=== PATIENT | male | born 1970 | race Caucasian/White ===

== ENCOUNTER 2020-02-23 18:29 | Emergency (ER) | payer BC, SELFPAY ==
[2020-02-23] VITALS (13 sets, daily range): BP systolic 168; BP diastolic 108; PULSE 86–97; RESP 15–26; O2SAT 96–98; BMI 29.7
--- NOTE | 2020-02-23 18:38 | PC.NURSE ---
pt has no deficits besides facial numbness. this started 7 days ago putting him out of the window of treatment for an ischemic stroke. pt is stable
--- NOTE | 2020-02-23 20:21 | ED_ITS ---
Entered by Radha Centeno, acting as scribe for Marlene Ortega MD HPI - Neuro Symptoms/Deficit General: Chief Complaint: Neuro Symptoms/Deficit Stated Complaint: Stroke symptoms Time Seen by Provider: 02/23/20 20:19 Source: patient Mode of arrival: ambulatory Limitations: no limitations History of Present Illness: HPI Narrative: 49 yo m came to the er pov for stroke like symptoms. Onset was 1 week ago. Pt woke up about a week ago with his left eye and left arm numb. Pt said that he had a qud bypass 3 years ago. Pt said that the numbness is constant and has not gone away, but pt is able to walk. Pt is not having any weakness just numbness. Pt states that he has not had any change in vision at this time. Onset (ago): week(s) (1 week ago) Timing confirmed by: spouse Location: left face (numbness around the left eye) and left arm (numbness) Severity: mild Quality: numb Relieving factors: none Exacerbating factors: none Context: sudden onset Associated symptoms: Reports no associated symptoms; Deny chest pain, headache(s), nausea or vomiting Treatments Prior to Arrival: none Review of Systems General: Reports: other (negative unless marked) Const: Denies: fever, chills, body aches or change in appetite Eyes: Denies: change in vision ENMT: Denies: throat pain or dental pain Card: Denies: chest pain Resp: Denies: shortness of breath GI: Denies: abdominal pain, nausea, vomiting or diarrhea : Denies: painful urination Musc: Denies: neck pain or back pain Skin/Breast: Denies: rash Neuro: Reports: numbness in extremities; Denies: headache or difficulty walking Psych: Denies: depression Patrice/Lymph: Denies: easy bruising All/Imm: Denies: hives PFSH ED PFSH: Social History Smoking and tobacco status: current every day smoker NIH stroke score NIHSS: Level Of Consciousness - 1a: 0 Level Of Consciousness Questions - 1b: Both Correct Level Of Consciousness Commands - 1c: Both Correct Best Gaze - 2: Normal Visual Aviles - 3: No Visual Loss Facial Palsy - 4: Normal Motor Arm Right - 5: No Drift Motor Arm Left - 5: No Drift Motor Leg Right - 6: No Drift Motor Leg Left - 6: No Drift Limb Ataxia - 7: Absent Sensory - 8: Normal Best Language - 9: No Aphasia Dysarthia - 10: Normal Extinction And Inattention - 11: 0 Score: Total Score: 0 Physical Exam Const: COMMON NORMALS: no apparent distress, oriented x3 and healthy appearing HENMT: COMMON NORMALS: normocephalic and head/scalp atraumatic HEAD & SCALP: normocephalic and atraumatic Eye: COMMON NORMALS: PERRL and EOMs intact bilaterally PUPIL: Yes PERRL Neck/C-Spine: COMMON NORMALS: full ROM and supple Chest: COMMONS NORMALS: inspection of chest normal and palpation of chest normal Resp: COMMON NORMALS: normal respiratory effort, no retractions, no use of accessory muscles and clear to auscultation bilaterally AUSCULTATION: clear to auscultation bilaterally Cardio: COMMON NORMALS: regular rate, regular rhythm and no murmurs RATE: regular rate RHYTHM: regular rhythm GI: COMMON NORMALS: normal to inspection, nondistended, normoactive bowel sounds, soft to palpation, non-tender and no masses PALPATION: Yes soft Extremity: COMMON NORMALS: normal to inspection and full ROM Neuro: COMMON NORMALS: oriented x3, moves all extremities and no focal motor deficits Psych: COMMON NORMALS: mental status grossly normal, thought process normal and cooperative THOUGHT PROCESS: normal thought process Skin: COMMON NORMALS: no rashes or lesions noted and no wounds GENERAL SKIN EXAM: no rashes or lesions noted Course Vital Signs: Vital signs: Vital Signs Pulse Rate 87 02/23/20 21:50 Respiratory Rate 22 H 02/23/20 21:50 Blood Pressure 168/108 02/23/20 18:32 Pulse Oximetry 97 02/23/20 21:50 MDM - Neuro Symptoms/Deficit MDM Narrative: Medical decision making narrative: pt presents here with paresthesias. Pt has no decreased sensations. pt nih here is zero. his head ct is normal and has no signs of an acute stroke. pt is stable for discharge and is to follow up with pcp in 2-4 days and rturn if worsening. Lab Data: Labs: Lab Results 02/23/20 02/23/20 02/23/20 Range/Units 20:43 21:15 21:15 WBC 9.9 (4.0-10.0) 10^3/ uL RBC 5.57 H (4.1-5.3) 10^6/u L Hgb 16.5 (11.7-16.6) g/dL Hct 47.9 (42.0-52.0) % MCV 86.0 (80-94) fL MCH 29.6 (28.0-34.0) pg MCHC 34.4 (30.0-36.0) g/dL RDW 12.4 (12.1-15.1) % Plt Count 255 (130-400) 10^3/c mm MPV 8.7 (7.4-10.4) fL Neut % (Auto) 46.7 % Lymph % (Auto) 45.5 % [place] % (Auto) 5.5 % Eos % (Auto) 1.7 % Baso % (Auto) 0.4 % Neut # (Auto) 4.6 (1.8-7.7) 10^3/u L Lymph # (Auto) 4.5 (0.8-4.8) 10^3/u L [place] # (Auto) 0.5 (0.2-0.9) 10^3/u L Eos # (Auto) 0.2 (0.0-0.8) 10^3/u L Baso # (Auto) 0.0 (0.0-0.1) 10^3/u L Nucleated RBC % (a uto) 0 % Nucleated RBCs # 0.0 /100WBC PT 13.50 H (10.5-13.3) SECO NDS INR 1.03 (0.8-1.2) Sodium 136 (136-145) mmol/L Potassium 4.1 (3.5-5.1) mmol/L Chloride 99 (98-107) mmol/L Carbon Dioxide 25 (22-29) mmol/L Anion Gap 16.1 (5-19) BUN 12 (6-20) mg/dL Creatinine 0.8 (0.7-1.2) mg/dL GFR Calculation 101.9 (90-130) mL/min Glucose 145 H (65-115) mg/dL Calculated Osmolal ity 281 L (285-295) mOsm/k g Calcium 9.9 (8.5-10.5) mg/dL Total Bilirubin 0.4 (0.15-1.2) mg/dL AST 15 (0-40) U/L ALT 18 (0-41) U/L Alkaline Phosphata se 73 (40-130) IU/L Total Protein 7.6 (6.6-8.7) g/dL Albumin 4.1 (3.5-5.2) g/dL Globulin 3.5 (1.3-4.6) g/dL Imaging Data^: CT Head: Radiologist's impression: [address] [address] [address] Scan Report Signed Patient: Delores Taylor Unit #: [id number] : 1970 Age/Sex: 49 / M ADM Date: 02/23/20 Loc: ER Room/Bed: Attending Dr: Ordering Provider/Ordering MD: Marlene Ortega MD Date of Service: 02/23/20 Procedure(s): CT head wo con* [id number] Accession Number(s): [id number] Report Number: [id number] PROCEDURE INFORMATION: Exam: CT Head Without Contrast Exam date and time: 02/23/2020 8:39 PM Age: 49 years old Clinical indication: Weakness, extremity and weakness, facial; Left; Additional info: Paresthesia TECHNIQUE: Imaging protocol: Computed tomography of the head without contrast. Total DLP: 857.59 mGy-cm Radiation optimization: All CT scans at this facility use at least one of these dose optimization techniques: automated exposure control; mA and/or kV adjustment per patient size (includes targeted exams where dose is matched to clinical indication); or iterative reconstruction. COMPARISON: No relevant prior studies available. FINDINGS: Brain: Normal. No hemorrhage. Unremarkable white matter. No mass effect. Ventricles: Normal. No ventriculomegaly. Bones/joints: Unremarkable. No acute fracture. Sinuses: Visualized sinuses are unremarkable. No fluid levels. Mastoid air cells: Visualized mastoid air cells are well aerated. Soft tissues: Unremarkable. CT/CT head wo con* [id number] IMPRESSION: No acute intracranial abnormality. EKG Data^: EKG 1: Attestation: I personally reviewed and interpreted this EKG as follows: EKG interpretation date: 02/23/20 EKG interpretation time: 21:11 Interpretation: nsr hr [address] or t wave abnormalities qrs 97 qtc 383 Discharge Plan Discharge Patient Disposition: Home, Self-Care Clinical Impression: Paresthesia Condition: Stable Prescriptions: No Action glipizide 5 mg tablet extended release 24hr 5 mg PO DAILY RF: 0 metformin 500 mg tablet extended release 24 hr 500 mg PO DAILY RF: 0 Discharge Orders: Discharge Order (Routine); Ordered 02/23/20 Ordered By: Marlene Ortega Referrals: Francoise Ferraro DO [Family Provider] - 1-3 days Discharge Diet: Advance as tolerated Discharge Activity: Resume usual activity Patient Instructions: Paresthesia (ED) Coding Level of Care Code ED 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
--- NOTE | 2020-02-23 20:25 | CTR_ITS ---
PROCEDURE INFORMATION: Exam: CT Head Without Contrast Exam date and time: 02/23/2020 8:39 PM Age: 49 years old Clinical indication: Weakness, extremity and weakness, facial; Left; Additional info: Paresthesia TECHNIQUE: Imaging protocol: Computed tomography of the head without contrast. Total DLP: 857.59 mGy-cm Radiation optimization: All CT scans at this facility use at least one of these dose optimization techniques: automated exposure control; mA and/or kV adjustment per patient size (includes targeted exams where dose is matched to clinical indication); or iterative reconstruction. COMPARISON: No relevant prior studies available. FINDINGS: Brain: Normal. No hemorrhage. Unremarkable white matter. No mass effect. Ventricles: Normal. No ventriculomegaly. Bones/joints: Unremarkable. No acute fracture. Sinuses: Visualized sinuses are unremarkable. No fluid levels. Mastoid air cells: Visualized mastoid air cells are well aerated. Soft tissues: Unremarkable. CT/CT head wo con* [id number] IMPRESSION: No acute intracranial abnormality. Radiation Dose CTDIVOL = (mGy): DLP = 857.59 (mGy-cm)
--- NOTE | 2020-02-23 20:25 | XR_ITS ---
WS: [id number] Portable AP upright chest, 02/23/2020 Clinical Data: cp Comparison: PA and lateral chest, 04/29/2016. Findings: No nodules, masses or effusions are seen. Basilar atelectatic changes remain the same. The heart is normal. The pulmonary vascularity is not increased. No pneumonia or pneumothorax is seen. Th e aortic arch and descending aorta are minimally tortuous. Midline sternotomy sutures are present. XR/XR chest 1V portable [id number] Impression: 1 atherosclerosis. 2. No change in basilar atelectasis.
--- NOTE | 2020-02-23 20:26 | ECG_ITS ---
Measurements Intervals [place] Rate: 85 P: 50 KS: 163 QRS: 80 QRSD: 97 T: 73 QT: 340 QTc: 406 SINUS RHYTHM WITH OCCASIONAL VENTRICULAR PREMATURE COMPLEXES Compared to ECG 04/25/2016 04:09:31 Ventricular premature complex(es) now present ST (T wave) deviation no longer present Early repolarization no longer present Electronically Signed On 02-24-2020 18:20:37 CDT by Tommy Null M.D. [id number]
--- NOTE | 2020-02-23 20:44 | PC.NURSE ---
Introduced self to patient and initiated vital signs. Patient presents A&O x 4. NAD, ABCs intact, MAEW and agreeable to treatment. Respirations are even and unlabored. Pt states that the chief complaint for the ER visit today is due to left arm and eye socket numbness for about 1 week. Pt denies any vision disturbances or lightheadedness. Bed left in lowest position in semi-fowlers with side rails up.Reassured patient of needs and will continue to monitor.
[2020-02-23 20:58] LABS: Basophils % 0.4 %; Eosinophils # 0.2 10^3/uL (0.0-0.8); Eosinophils % 1.7 %; Hematocrit 47.9 % (42.0-52.0); Hemoglobin 16.5 g/dL (11.7-16.6); Lymphocytes # 4.5 10^3/uL (0.8-4.8); Lymphocytes % 45.5 %; Mean Corpuscular HGB Conc 34.4 g/dL (30.0-36.0); Mean Corpuscular Hemoglobin 29.6 pg (28.0-34.0); Mean Platelet Volume 8.7 fL (7.4-10.4); Monocytes # 0.5 10^3/uL (0.2-0.9); Monocytes % 5.5 %; Neutrophils # 4.6 10^3/uL (1.8-7.7); Neutrophils % 46.7 %; Nucleated Red Blood Cells % 0 %; Platelet Count 255 10^3/cmm (130-400); Red Blood Count 5.57 10^6/uL (4.1-5.3); Red Cell Distribution Width 12.4 % (12.1-15.1); White Blood Count 9.9 10^3/uL (4.0-10.0)
[2020-02-23 21:41] LABS: Alanine Aminotransferase 18 U/L (0-41); Albumin Level 4.1 g/dL (3.5-5.2); Alkaline Phosphatase 73 IU/L (40-130); Anion Gap 16.1 (5-19); Aspartate Amino Transferase 15 U/L (0-40); Blood Urea Nitrogen 12 mg/dL (6-20); Calcium 9.9 mg/dL (8.5-10.5); Carbon Dioxide 25 mmol/L (22-29); Chloride 99 mmol/L (98-107); Globulin 3.5 g/dL (1.3-4.6); Glomerular Filtration Rate 101.9 mL/min (90-130); Glucose 145 mg/dL (65-115); Osmolality Calculated 281 mOsm/kg (285-295); Potassium 4.1 mmol/L (3.5-5.1); Sodium 136 mmol/L (136-145); Total Bilirubin 0.4 mg/dL (0.15-1.2); Total Protein 7.6 g/dL (6.6-8.7)
[2020-02-23 21:55] LABS: INR 1.03 (0.8-1.2)
== END 2020-02-23 22:17 | disposition home or self-care (01) ==
PROVIDERS: Emergency Provider Emergency Medicine; Family Provider Family Medicine
DX: R20.0 Anesthesia of skin (principal); F17.200 Nicotine dependence, unspecified, uncomplicated; Z95.1 Presence of aortocoronary bypass graft
CPT/HCPCS: 12345; 36415; 70450; 71045; 80053; 85025; 85610; 93005; 99282; 99283

== ENCOUNTER 2024-05-04 17:41 | Observation (INO) | payer BC, SELFPAY ==
--- NOTE | 2024-05-04 17:44 | XRR_ITS ---
PROCEDURE INFORMATION: Exam: XR Chest Exam date and time: 05/04/2024 6:15 PM Age: 53 years old Clinical indication: Pain; Chest pressure; Prior surgery; Surgery date: 6+ months; Surgery type: Open heart; Additional info: Cp TECHNIQUE: Imaging protocol: Radiologic exam of the chest. Views: 1 view. COMPARISON: CR XR chest 1V portable [id number] 02/23/2020 8:30 PM FINDINGS: Lungs: Bibasilar curvilinear scarring. No consolidation. Pleural spaces: Unremarkable. No pleural effusion. No pneumothorax. Heart/Mediastinum: Sequela of prior CABG. No cardiomegaly. Bones/joints: Sternotomy wires noted. Visualized osseous structures are intact. XR/XR chest 1V portable [id number] IMPRESSION: No acute findings.
--- NOTE | 2024-05-04 17:44 | ECG_ITS ---
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 Measurements Intervals [place] Rate: 70 P: -74 ID: 150 QRS: 97 QRSD: 98 T: 123 QT: 423 QTc: 457 Interpretive Statements ECTOPIC ATRIAL RHYTHM BORDERLINE RIGHT AXIS DEVIATION [QRS AXIS > 90] MODERATE T-WAVE ABNORMALITY, CONSIDER LATERAL ISCHEMIA [-0.1+ mV T-WAVE IN I/aVL/V5/V6] Compared to ECG 02/23/2020 21:11:55 Ectopic atrial rhythm now present T-wave abnormality now present Possible ischemia now present Sinus rhythm no longer present Ventricular premature complex(es) no longer present Electronically Signed On 05-05-2024 7:26:13 CDT by Carlos Amos M.D. [id number]
[2024-05-04 17:50] VITALS: BP 149/82; PULSE 70; RESP 16; TEMP 36.7; O2SAT 95
--- NOTE | 2024-05-04 18:54 | ED_ITS ---
HPI - Chest Pain 2 General: Chief Complaint: Chest Pain Stated Complaint: dizzy, chest tightness Time Seen by Provider: 05/04/24 18:46 Source: patient Mode of arrival: ambulatory Limitations: no limitations History of Present Illness: 53-year-old male states has been having intermittent chest pain since Saturday. He states been a sharp pain in the left side also some pain in his back states he had a massage yesterday and it did help his pain to be had some more pain today and had a near syncopal event has felt lightheaded. He denies any pain currently he denies any cough or fever or shortness of breath Associated symptoms: Reports syncope; Deny abdominal pain, dyspnea, fever(s), nausea or vomiting Review of Systems 2 Const: Denies: fever(s), chills, body aches or change in appetite ENMT: Denies: throat pain or dental pain Card: Reports: chest pain and syncope Resp: Denies: dyspnea GI: Denies: abdominal pain, nausea, vomiting or diarrhea Musc: Denies: neck pain or back pain Skin/Breast: Denies: rash Neuro: Denies: headache(s) PFSH ED 2 PFSH: Social History Smoking and tobacco/nicotine status: current every day tobacco/nicotine user Physical Exam 2 Const: COMMON NORMALS: patient oriented x3 HENMT: COMMON NORMALS: normocephalic and atraumatic HEAD & SCALP: n ormocephalic and atraumatic Eye: COMMON NORMALS: Equal, round and reactive pupils present and EOMs intact bilaterally PUPIL: Yes Equal, round and reactive pupils present Neck/C-Spine: COMMON NORMALS: full ROM and supple Chest: COMMONS NORMALS: normal inspection of the chest and normal palpation of entire chest wall Resp: COMMON NORMALS: normal respiratory effort, No retractions, No use of accessory muscles and clear to auscultation bilaterally AUSCULTATION: clear to auscultation bilaterally Cardio: COMMON NORMALS: regular rate, regular rhythm and No murmurs present (Cardio) RATE: regular rate RHYTHM: regular rhythm Extremity: COMMON NORMALS: normal to inspection and full ROM Neuro: COMMON NORMALS: patient oriented x3, moves all extremities and no focal motor deficits Psych: COMMON NORMALS: mental status grossly normal, Normal thought process present and cooperative THOUGHT PROCESS: Normal thought process present Skin: COMMON NORMALS: no rashes or lesions noted and no wounds GENERAL SKIN EXAM: no rashes or lesions noted Course 2 Vital Signs: Vital signs: Vital Signs Temperature 98.0 F 05/04/24 17:50 Pulse Rate 69 05/04/24 19:26 Respiratory Rate 25 H 05/04/24 19:26 Blood Pressure 136/80 05/04/24 19:26 Pulse Oximetry 97 05/04/24 19:26 Oxygen Delivery Me thod Room Air 05/04/24 19:26 MDM - Chest Pain Medical Decision Making Patient presents for chest pains been ongoing since Saturday has been pain-free here EKG shows T wave inversions in the lateral leads he also has an elevated troponin here likely has an NSTEMI. 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 Lab Data I reviewed the patient's lab results. 05/04/24 18:50 05/04/24 18:50 Radiology Impressions Chest X-Ray 05/04/24 17:44 IMPRESSION: No acute findings. Laboratory Results WBC 8.11 10^3/uL (3.29-11.43) 05/04/24 18:50 RBC 4.96 10^6/uL (3.85-5.65) 05/04/24 18:50 Hgb 14.40 g/dL (11.27-16.99) 05/04/24 18:50 Hct 43.2 % (37-53) 05/04/24 18:50 MCV 87.1 fl (82-101) 05/04/24 18:50 MCH 29.0 pg (27-33) 05/04/24 18:50 MCHC 33.3 g/dL (30-55) 05/04/24 18:50 RDW 13.0 % (12.1-15.1) 05/04/24 18:50 Plt Count 309 10^3/cmm (157-399) 05/04/24 18:50 MPV 9.4 fL (7.4-10.4) 05/04/24 18:50 Neut % (Auto) 58.7 % 05/04/24 18:50 Lymph % (Auto) 34.2 % 05/04/24 18:50 [place] % (Auto) 6.0 % 05/04/24 18:50 Eos % (Auto) 0.7 % 05/04/24 18:50 Baso % (Auto) 0.2 % 05/04/24 18:50 Neut # (Auto) 4.75 10^3/uL (1.8-7.7) 05/04/24 18:50 Lymph # (Auto) 2.8 10^3/uL (0.8-4.8) 05/04/24 18:50 [place] # (Auto) 0.5 10^3/uL (0.2-0.9) 05/04/24 18:50 Eos # (Auto) 0.1 10^3/uL (0.0-0.8) 05/04/24 18:50 Baso # (Auto) 0.0 10^3/uL (0.0-0.1) 05/04/24 18:50 Nucleated RBC % (auto) 0 % 05/04/24 18:50 Nucleated RBCs # 0.0 /100WBC 05/04/24 18:50 PT 15.10 SECONDS (12.1-14.9) H 05/04/24 18:50 INR 1.15 (0.8-1.2) 05/04/24 18:50 Sodium 138 mmol/L (136-145) 05/04/24 18:50 Potassium 3.8 mmol/L (3.5-5.1) 05/04/24 18:50 Chloride 102 mmol/L (98-107) 05/04/24 18:50 Carbon Dioxide 25 mmol/L (22-29) 05/04/24 18:50 Anion Gap 14.8 (5-19) 05/04/24 18:50 BUN 15 mg/dL (6-20) 05/04/24 18:50 Creatinine 0.9 mg/dL (0.7-1.2) 05/04/24 18:50 GFR Calculation 87.6 mL/min (90-130) L 05/04/24 18:50 Glucose 153 mg/dL (65-115) H 05/04/24 18:50 Calculated Osmolality 290 mOsm/kg (285-295) 05/04/24 18:50 Calcium 8.7 mg/dL (8.5-10.5) 05/04/24 18:50 Total Bilirubin 0.7 mg/dL (0.15-1.2) 05/04/24 18:50 AST 23 U/L (0-40) 05/04/24 18:50 ALT 24 U/L (0-41) 05/04/24 18:50 Alkaline Phosphatase 101 U/L (40-130) 05/04/24 18:50 Troponin T Baseline 437 ng/L (0-15) H* 05/04/24 18:50 Total Protein 7.6 g/dL (6.6-8.7) 05/04/24 18:50 Albumin 4.3 g/dL (3.5-5.2) 05/04/24 18:50 Globulin 3.3 g/dL (1.3-4.6) 05/04/24 18:50 Lipase 19 U/L (13-60) 05/04/24 18:50 All radiology interpretation(s) finalized by discharge EKG Data EKG 1: I personally reviewed and interpreted this EKG as follows: EKG interpretation date: 05/04/24 EKG interpretation time: 17:50 Interpretation: nsr hr [address] elevation t wave inversions in lateral leads qrs 98 qtc 443 EKG 2: I personally reviewed and interpreted this EKG as follows: EKG interpretation date: 05/04/24 EKG interpretation time: 19:43 Interpretation: nsr hr 68 no stemi qrs 98 qtc 447 Discharge Plan Discharge Patient Disposition: Admitted As Inpatient Clinical Impression: Non-ST elevation HI (NSTEMI) Condition: Stable Coding Level of Care Code ED Count Room Clerk for Shayy Almanzar
[2024-05-04 19:01] LABS: Basophils % 0.2 %; Eosinophils # 0.1 10^3/uL (0.0-0.8); Eosinophils % 0.7 %; Hematocrit 43.2 % (37-53); Lymphocytes # 2.8 10^3/uL (0.8-4.8); Lymphocytes % 34.2 %; Mean Corpuscular HGB Conc 33.3 g/dL (30-55); Mean Corpuscular Volume 87.1 fl (82-101); Mean Platelet Volume 9.4 fL (7.4-10.4); Monocytes # 0.5 10^3/uL (0.2-0.9); Neutrophils # 4.75 10^3/uL (1.8-7.7); Neutrophils % 58.7 %; Nucleated Red Blood Cells % 0 %; Platelet Count 309 10^3/cmm (157-399); Red Blood Count 4.96 10^6/uL (3.85-5.65); White Blood Count 8.11 10^3/uL (3.29-11.43)
[2024-05-04] MEDS: aspirin 81 mg Chew Tablet 324 MG PO (19:12)
[2024-05-04 19:14] LABS: INR 1.15 (0.8-1.2)
[2024-05-04 19:22] LABS: Alanine Aminotransferase 24 U/L (0-41); Albumin Level 4.3 g/dL (3.5-5.2); Alkaline Phosphatase 101 U/L (40-130); Anion Gap 14.8 (5-19); Aspartate Amino Transferase 23 U/L (0-40); Blood Urea Nitrogen 15 mg/dL (6-20); Calcium 8.7 mg/dL (8.5-10.5); Carbon Dioxide 25 mmol/L (22-29); Chloride 102 mmol/L (98-107); Creatinine Clr Calc Pharmacy 88.0542; Globulin 3.3 g/dL (1.3-4.6); Glomerular Filtration Rate 87.6 mL/min (90-130); Glucose 153 mg/dL (65-115); Lipase 19 U/L (13-60); Osmolality Calculated 290 mOsm/kg (285-295); Potassium 3.8 mmol/L (3.5-5.1); Sodium 138 mmol/L (136-145); Total Bilirubin 0.7 mg/dL (0.15-1.2); Total Protein 7.6 g/dL (6.6-8.7)
[2024-05-04 19:26] VITALS: BP 136/80; PULSE 69; RESP 25; O2SAT 97
[2024-05-04 19:32] LABS: Troponin(5th) Baseline 437 ng/L (0-15)
--- NOTE | 2024-05-04 19:43 | ECG_ITS ---
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 Measurements Intervals [place] Rate: 68 P: 139 [place]: 151 QRS: -42 QRSD: 98 T: -75 QT: 429 QTc: 459 Interpretive Statements ECTOPIC ATRIAL RHYTHM LEFT AXIS DEVIATION [QRS AXIS < -30] ST DEVIATION AND MODERATE T-WAVE ABNORMALITY, CONSIDER LATERAL ISCHEMIA [-0.1+ mV T-WAVE IN I/aVL/V5/V6] ST DEVIATION AND MODERATE T-WAVE ABNORMALITY, CONSIDER INFERIOR ISCHEMIA [-0.1+ mV T-WAVE IN II/aVF] Compared to ECG 05/04/2024 17:50:36 Left-axis deviation now present T-wave abnormality still present Possible ischemia still present Electronically Signed On 05-05-2024 7:30:24 CDT by Carlos Amos M.D. [id number]
[2024-05-04 20:00] VITALS: PULSE 67; RESP 26; O2SAT 96
[2024-05-04] MEDS: enoxaparin 80 mg/0.8 mL Syringe 70 MG SUBCUT (20:21)
--- NOTE | 2024-05-04 20:25 | PM.HP ---
Providers/Chief Complaint Admitting Physician: Phoenix Rosen MD Chief Complaint: dizzy, chest tightness History of Present Illness Delores Taylor is a 53 year old male with a past medical history significant for coronary artery disease with history of four-vessel CABG and tobacco use disorder who presents to the emergency department chest pressure. Patient states he was in his usual state of health until Saturday when he developed chest pains which he describes as a substernal chest pressure. He reports the nature of the pain feels sharp with some radiation towards his back. He describes the pain as intermittent but worsening over the past few days. He is unsure if exertion or rest affected the pain much. He notes that he did have a massage yesterday which did seem to initially help the pain some. States this morning when he was driving to work he briefly passed out and landed the grass. States he had another brief syncopal episode while sitting on the bleachers today and then another 1 later while outside. He denies any head trauma or pain from the syncope. He reports associated nausea today. Denies other associated symptoms. Denies other alleviating or aggravating factors. Patient reports a history of a four-vessel CABG performed at [facility] about 7 years ago. He reports prior to his bypass, he was having chest pressure and nausea. He states the symptoms over the past few days only somewhat similar to his prior symptoms. He no longer follows with cardiology. He states he currently takes no medications. He reports he does continue to smoke tobacco. He smokes about 1 pack/day. In the emergency department, he was found to have elevated troponin and EKG concerning for inferolateral ischemia. Patient treated with Lovenox. Cardiology consulted. Review of Systems Narrative: A complete review of systems was obtained and is negative except as stated in HPI. Medications/Allergies Allergies Allergy/AdvReac Type Severity Reaction Status Date / Time No Known Allergies Allergy Verified 05/04/24 17:59 PFSH Acute PFSH: Medical History Tobacco use disorder Coronary artery disease Surgical History S/P CABG x 4 Family History Mother Cancer Social History Smoking and tobacco/nicotine status: current every day tobacco/nicotine user Vitals/I&O/Wt Last Vital Signs Temp 98.0 F 05/04/24 17:50 Pulse 67 05/04/24 20:00 Resp 96 H 05/04/24 20:00 BP 136/80 05/04/24 19:26 Pulse Ox 96 05/04/24 20:00 O2 Del Method Room Air 05/04/24 20:00 Weight last 48 hrs Weight 72.121 kg Physical Exam Narrative: General: Patient is awake and alert. Head: Normocephalic. Atraumatic. EOM intact. Neck: No JVD. Cardiovascular: RRR. No gallops. No murmurs. No peripheral edema. Lungs: Slight cough, no use of accessory muscles, no crackles or wheezes. Skin: No jaundice. No rashes. Abdomen: Normal bowel sounds, abdomen soft and nontender. Genito Urinary: Genital exam not performed since complaints not related. Rectal: Rectal exam not performed since no symptoms indicated blood loss. Extremities: No cyanosis or clubbing. Musculoskeletal: 5/5 strength, normal range of motion, no swollen or erythematous joints. Neurological: Moves all 4 extremities. No myoclonus. Data 05/04/24 18:50 05/04/24 18:50 A&P Assessment and plan (1) Non-ST elevation [place] (NSTEMI): Presentation consistent with NSTEMI; known history of CAD with history of 4v CABG Loaded with aspirin in ER, continue 81 mg daily Load with Plavix followed by 75 mg daily Start high intensity statin Start beta-aawis with metoprolol Check lipids and A1c Continuous telemetry monitoring Given dose Lovenox in ED, start heparin drip protocol 12 hours Nitroglycerin sublingual up to 3 doses Morphine for refractory pain N.p.o. at midnight Cardiology consulted for recommendations regarding ischemic workup (2) Syncope: Near syncope/syncope x 3 episodes today Concerning for possible ventricular arrhythmia Continuous telemetry monitoring Fall precautions Neurochecks Monitor electrolytes Echocardiogram (3) Coronary artery disease: History of four-vessel CABG performed at [facility] about 7 years ago Management of coronary disease as noted above (4) Hyperglycemia: Check A1c (5) Tobacco use disorder: Patient would benefit from smoking cessation Plan DVT prophylaxis: Lovenox/heparin drip CODE STATUS: Full code Attestations Medical Necessity Statement*: Patient presents with chest pressure and recurrent syncope, found to have NSTEMI suspect hospitalization not to cross 2 midnights for ACS protocol and ischemic evaluation. Coding Level of Care Code Acute Code for Chg Fwd Diagnoses Non-ST elevation [place] (NSTEMI) I21.4 Syncope R55 Coronary artery disease I25.10 Hyperglycemia R73.9 Tobacco use disorder F17.200
[2024-05-04 20:54] VITALS: PULSE 87; RESP 25; O2SAT 96
[2024-05-04 21:02] VITALS: BMI 25.7
[2024-05-04 21:26] LABS: Troponin 5 2HR Delta -19.9 ABS# (0-10)
[2024-05-04 21:28] VITALS: BP 136/81; PULSE 69; RESP 27; TEMP 36.7; O2SAT 95
[2024-05-04 21:28] LABS: Troponin 5 2HR 417.1 ng/L (0-15)
--- NOTE | 2024-05-04 21:30 | USCV_ITS ---
Delores Taylor Age: 53 Gender: M : 1970 Exam Date: 05/04/2024 22:23 Ordering Phys: Phoenix Rosen MD Technologist: DAWOOD Exam Location: [place] Indication: NSTEMI. s/p CABG 2016 BP: 136 / 81 HR: 67 Rhythm: Atrial Fibrillation Technical Quality: Adequate MEASUREMENTS (Male / Female) Normal Values 2D ECHO LV Diastolic Diameter PLAX 4.8 cm 4.2 - 5.9 / 3.9 - 5.3 cm IVS Diastolic Thickness 0.9 cm 0.6 - 1.0 / 0.6 - 0.9 cm IVS Systolic Thickness 1.2 cm LVPW Diastolic Thickness 0.9 cm 0.6 - 1.0 / 0.6 - 0.9 cm LVPW Systolic Thickness 1.4 cm LVOT Diameter 2.2 cm LV Ejection Fraction 2D Teich 38.3 % LV Ejection Fraction MOD 2C 38.9 % LV Ejection Fraction 2C AL 44.8 % LA Diameter 5.3 cm Aorta at Sinotubular Diameter 2.9 cm IVC Diameter 2.3 cm M-MODE LA Ao Ratio MM 1.3 AV Cusp Separation MM 1.7 cm DOPPLER AV Peak Velocity 138.0 cm/s LVOT Peak Velocity 68.0 cm/s AV Area Cont Eq vti 2.1 cm squared AV Area Cont Eq pk 1.8 cm squared MV Area PHT 4.9 cm squared Mitral E to A Ratio 311.0 TV Peak Velocity 259.7 cm/s TR Peak Velocity 278.0 cm/s TR Peak Gradient 30.9 mmHg TV Peak E Velocity 51.0 cm/s Right Atrial Pressure 10.0 mmHg Pulmonary Artery Systolic Pressu 40.9 mmHg PV Peak Velocity 73.0 cm/s FINDINGS Left Ventricle Left ventricle normal size. LV systolic function is moderately reduced with EF of 35 to 40%. Moderate global hypokinesis. Right Ventricle RV is moderately hypokinetic. Right Atrium Normal in size Left Atrium Normal in size Mitral Valve Structurally normal mitral valve. Mild mitral regurgitation. Aortic Valve Aortic valve is thickened. No significant stenosis or regurgitation. Tricuspid Valve Mild tricuspid regurgitation. RVSP is 35 to 40 mmHg. This is consistent with mild pulmonary hypertension. Pulmonic Valve Not well visualized Pericardium Normal Aorta Normal in size IVC Appears to be dilated CONCLUSIONS LV systolic function is moderately reduced with EF of 35 to 40%. RV is moderately hypokinetic. Mild mitral regurgitation Mild tricuspid regurgitation. Mild pulmonary hypertension IVC appears to be dilated. No comparison studies are available. Carlos Amos MD (Electronically Signed) Final Date: 05 May 2024 07:49 S
[2024-05-04 21:56] LABS: Chol HDL Ratio 6.64 mg/dL (1.0-5.00); Cholesterol 166 mg/dL (0-200); HDL Cholesterol 25 mg/dL (60-100); LDL Cholesterol Calculated 116 mg/dL (50-129); LDL HDL Ratio 4.64 RATIO (0.00-3.22); Triglycerides 126 mg/dL (0-150)
[2024-05-04 22:00] VITALS: PULSE 69
[2024-05-04] MEDS: atorvastatin 40 mg Tablet 80 MG PO (22:21)
[2024-05-04] MEDS: metoprolol tartrate 25 mg Tablet PO (22:21)
[2024-05-04] MEDS: clopidogrel 300 mg Tablet 600 MG PO (22:21)
[2024-05-04 22:45] LABS: Estmated Average Glucose 200; Hemoglobin A1C 8.6 % (4.0-6.0)
--- NOTE | 2024-05-04 23:37 | ECG_ITS ---
[facility] Test Date: 2024-05-04 Pat Name: Delores Taylor Department: Room: 102 Gender: Male [id number] Architect: : 1970 Requested By: Marlene Ortega Order Number: [id number] [place] MD: Carlos Amos M.D. Measurements Intervals [place] Rate: 69 P: -71 [place]: 133 QRS: 108 QRSD: 96 T: 117 QT: 409 QTc: 439 Interpretive Statements ECTOPIC ATRIAL RHYTHM RIGHT AXIS DEVIATION [QRS AXIS > 100] ST DEVIATION AND MODERATE T-WAVE ABNORMALITY, CONSIDER LATERAL ISCHEMIA [-0.1+ mV T-WAVE IN I/aVL/V5/V6] Compared to ECG 05/04/2024 19:43:14 Right-axis deviation now present Ectopic atrial rhythm no longer present Left-axis deviation no longer present T-wave abnormality still present Possible ischemia still present Electronically Signed On 05-05-2024 7:28:30 CDT by Carlos Amos M.D. [id number]
[2024-05-05] VITALS (14 sets, daily range): BP systolic 92–132; BP diastolic 52–80; PULSE 57–75; RESP 15–74; TEMP 36.3–36.8; O2SAT 90–94
[2024-05-05 01:35] LABS: Troponin 5 6HR Delta -25.6 ng/L (0-12)
[2024-05-05 01:36] LABS: Troponin 5 6HR 411.4 ng/L (0-15)
[2024-05-05 04:13] LABS: Basophils % 0.4 %; Eosinophils # 0.1 10^3/uL (0.0-0.8); Eosinophils % 1.2 %; Hematocrit 41.5 % (37-53); Lymphocytes # 2.8 10^3/uL (0.8-4.8); Lymphocytes % 36.2 %; Mean Corpuscular HGB Conc 32.5 g/dL (30-55); Mean Corpuscular Hemoglobin 28.8 pg (27-33); Mean Corpuscular Volume 88.7 fl (82-101); Mean Platelet Volume 9.6 fL (7.4-10.4); Monocytes # 0.5 10^3/uL (0.2-0.9); Monocytes % 5.8 %; Neutrophils # 4.37 10^3/uL (1.8-7.7); Neutrophils % 55.8 %; Nucleated Red Blood Cells % 0 %; Platelet Count 274 10^3/cmm (157-399); Red Blood Count 4.68 10^6/uL (3.85-5.65); Red Cell Distribution Width 13.1 % (12.1-15.1); White Blood Count 7.82 10^3/uL (3.29-11.43)
[2024-05-05 04:38] LABS: Anion Gap 14.2 (5-19); Blood Urea Nitrogen 15 mg/dL (6-20); Calcium 8.7 mg/dL (8.5-10.5); Carbon Dioxide 24 mmol/L (22-29); Chloride 106 mmol/L (98-107); Creatinine Clr Calc Pharmacy 79.2488; Glomerular Filtration Rate 77.6 mL/min (90-130); Glucose 145 mg/dL (65-115); Osmolality Calculated 293 mOsm/kg (285-295); Phosphorus 3.4 mg/dL (2.5-4.5); Potassium 4.2 mmol/L (3.5-5.1); Sodium 140 mmol/L (136-145)
--- NOTE | 2024-05-05 06:55 | P.CONIM_ITS ---
Providers/Reason For Consult 2 Consulting Physician/Specialty*: Carlos Amos MD/ Cardiology Reason for Consult*: NSTEMI Requesting Physician: Dr Ortega Attending Physician: Phoenix Rosen MD History of Present Illness History of Present Illness Delores Taylor is a 53 year old male with past medical history of smoking, CAD with four-vessel CABG in 2016 has presented with on and off chest pain since Saturday. Left sided pain with radiation to back. Over time it has gotten worse. [place] very lightheaded and almost passed out yesterday. Echo performed last night shows moderately reduced LV and RV function. Initial troponin was 437 and has trended down since. Still having on and off pain. Has some shortness of breath and cough since last night. EKG shows T wave inversions in lateral leads. Review of Systems 2 Const: Denies: fever(s), chills, body aches or change in appetite ENMT: Denies: throat pain or dental pain Card: Reports: chest pain and syncope Resp: Denies: dyspnea GI: Denies: abdominal pain, nausea, vomiting or diarrhea Musc: Denies: neck pain or back pain Skin/Breast: Denies: rash Neuro: Denies: headache(s) Medications/Allergies Home Medications Medication Instructions Recorded Confirmed Last Taken Type No Known Home Medications 05/05/24 05/05/24 Unknown History Allergies Allergy/AdvReac Type Severity Reaction Status Date / Time No Known Allergies Allergy Verified 05/04/24 17:59 Current Medications Generic Name Dose Route Start Last Admin Trade Name Freq PRN Reason Stop Dose Admin Atorvastatin Calcium 80 mg 05/04/24 21:35 05/04/24 22:21 Atorvastatin 40 Mg Tablet PO 80 mg BEDTIME ILEANA Administration Metoprolol Tartrate 25 mg 05/04/24 21:35 05/04/24 22:21 Metoprolol Tartrate 25 Mg Tablet PO 25 mg BID@0900,2100 ILEANA Administration PFSH Acute 2 PFSH: Medical History Tobacco use disorder Coronary artery disease Surgical History S/P CABG x 4 Family History Mother Cancer Social History Smoking and tobacco/nicotine status: current every day tobacco/nicotine user Vitals/I&O/Wt Last Vital Signs Temp 97.5 F L 05/05/24 04:00 Pulse 64 05/05/24 06:00 Resp 74 H 05/05/24 04:00 BP 105/67 05/05/24 04:00 Pulse Ox 92 05/05/24 04:00 O2 Del Method Room Air 05/05/24 04:00 05/04/24 05/04/24 05/05/24 14:59 22:59 06:59 Intake Total 240 / 240 500 / 740 Balance 240 / 240 500 / 740 Weight last 48 hrs Weight 160 lb Weight 160 lb Weight 159 lb Weight 159 lb Weight 159 lb Physical Exam 2 Narrative: GENERAL: Patient is alert, awake and oriented x3. [] NECK: No jugular vein distension. [] HEENT: No cyanosis. No icterus. No pallor. [] HEART: Regular S1 and S2. No murmur, rub or gallop. [] LUNGS: Clear to auscultate bilaterally. [] CENTRAL NERVOUS SYSTEM: Grossly nonfocal. [] EXTREMITIES: Lower extremities with no edema bilaterally. Data 05/05/24 03:13 05/05/24 03:13 A&P Assessment and plan (1) Non-ST elevation [place] (NSTEMI): (2) Coronary artery disease: (3) Tobacco use disorder: Plan Patient has presented with typical chest pain and symptoms with significantly elevated troponins. EKG showing the lateral wall T wave inversions. Findings consistent with non-ST elevation KS. Also had 2 syncopal/presyncopal episode yesterday. We will proceed with coronary angiogram with possible PCI. Risks and benefits of the procedure have been discussed. He understands these and wants to proceed. Continue aspirin and Plavix. Continue anticoagulation. N.p.o. Thank you for involving us with care of this patient. We will continue to follow. Please call with questions. Consult Attestations 2 Medical Necessity Statement: Care expected to cross 2 midnights. Coding Level of Care Code Acute Code for [facility] Fwd Diagnoses Non-ST elevation [place] (NSTEMI) I21.4 Coronary artery disease I25.10 Tobacco use disorder F17.200
--- NOTE | 2024-05-05 07:32 | PC.NURSE ---
Called Dr. Amos to see if he wanted me to start the heparin drip at this time as it was scheduled to start at 0700. Dr. Amos said to hold off on starting as he is planning to take the pt to [facility] this morning around 0830.
--- NOTE | 2024-05-05 07:43 | XACV_ITS ---
Exam Room: [facility] Ht: 168 cm Wt: 73 kg BSA: 1.85 m2 Gender: Male : 1970 Any Known Allergies: No known allergies Exam Priority: Routine Procedure(s): Procedure Description: Diagnostic procedure Procedure Description: PCI procedure Procedure Description: Venous Graft Catheterization Procedure Description: FAIR[place]KS Graft Catheterization Procedure Description: Drug Eluting Coronary Stent Procedure Description: Miscellaneous Procedure Description: ACT Procedure Description: Coronary Angiography Diagnostic Cath Status: Urgent Diagnostic Findings * Circumflex diffusely diseased, small sized vessel. * Left Main: severe 90% stenosis, COLIN: 2 flow. * Proximal Left Anterior Descending: chronic total occlusion, COLIN: 0 flow. * Bypass grafts: [place] to LAD is patent. SVG to RCA is patent. SVG to Diagonal artery is patent. SVG to OM at touchdown has critical 95% stenosis. * Proximal Right Coronary Artery: subtotal occlusion, COLIN: 2 flow. * First Obtuse Marginal Branch Segment: subtotal occlusion, COLIN: 1 flow. * Coronary angiography shows right dominance. PCI Status: Urgent PCI Indication: NSTE - ACS Interventional Findings * Procedure details: We engaged the SVG to OM vessel with JR4 guide catheter. IV heparin was administered to maintain anticoagulation. 0.014 run-through guidewire was used to cross the stenosis. We placed 2.25 x 15 mm resolute Christopher drug-eluting stent. At this time final angiogram was performed that showed excellent stent expansion. Guidewire and guide catheter were removed. Patient left the Vibration Engineer in a stable condition.. Conclusions 1. Critical stenosis of SVG to OM 2. at touchdown. 3. S/p successful revascularization with 1 stent.. 4. Patient has prior CABG. Recommendations * Dual antiplatelet therapy with aspirin and plavix. * High intensity statin therapy. * Outpatient cardiology follow up in 2 weeks. Interventional RX Recommendation: PCI w/o planned CABG Diagnostic RX Recommendation: PCI w/o planned CABG Anticoagulation: Heparin Pressures Phase:Rest AO : 96 / 71 ( 84 ) @ 9:51:00 AM 108 / 70 ( 86 ) @ 9:58:00 AM Clinical Evaluation EBL: 5mL-10mL Procedural Details Pre-Procedure Time Out. Identified patient by full name and date of as verbalized by the patient/guarantor. Does the consent match the physician's order: Yes. Accurate & Complete Informed Consent: Yes. Inpatient/Outpatient History & Physical on Chart: Yes. If H&P is completed, is and addenduem needed: No; If yes, is the addendum complete: N/A. Visualize and Verify Site with Patient/Guarantor: N/A. Relevant Radiology Images available: Yes. Pre-op teaching completed and patient verbalized understanding. The risks, benefits, and alternatives of sedation and/or procedure were discussed by physician. The patient agrees to continue. Procedure started. Current Diagnosis : NSTEMI. [facility] Clinical Fraility Score: 3: Managing Well. Vibration Engineer Indications: ACS > 24 hours. Chest Pain Symptom Assessment: Typical Angina Symptoms. Correct patient, site and procedure confirmed by cath team. Current diagnosis: NSTEMI. PERRLA. Strong, equal hand uke driver bilaterally. Lungs clear x 5 lobes. IV Site on Arrival: 18 gauge in the right anticubital. IV Fluids: 0.9% NaCl at KVO. 0 mL infused prior to supervisor dental laboratory. Oxygen started at 2liters/min via nasal canula. bilateral groins was prepped with chloroprep then draped in the usual sterile fashion. Baseline sample Acquired. HR: 64 BPM. Vital chart was stopped. Physician arrived. Physician scrubbed in. Immediate Pre-Procedure Time Out. Correct Patient: Yes; Correct Procedure: Yes; Correct Site: Yes; Correct Patient Position: Yes; Correct Supplies: Yes; Dried Flammable Prep: Yes; Blood Products Available: N/A;. Lidocaine 1% infiltrated to the right groin. Vital chart was stopped. Arterial access obtained with micropuncture set. Lidocaine 1% infiltrated to the right groin. A 5 british JL4 catheter in over wire. Multiple views taken of left coronary artery. Catheter removed over the standard wire. A 5 british JR4 catheter in over wire. Multiple views taken of right coronary artery. SVG's to Diaganol visualized and patent. SVG's to OM visualized and patent. SVG's to RCA visualized and patent. FA[place]KS to LAD visualized. Catheter removed over the standard wire. 6 british JR 4 guide catheter was inserted over the wire. Runthrough guidewire was advanced through the guide catheter to lesion in the OM. Inflation Number : 1 Robles Cassidy CHRISTOPHER 2.25X15 ANISA -Lot Number# [id number] exp: 04/07/2025 was prepped and advanced across the Aorta Left -> 1st Ob Ghada. The stent was deployed at 12 NATALIO for 0:25 seconds. Balloon out. Results checked. Results checked. Wire out. Guide catheter out. ACT drawn. Results 262 seconds. Therapeutic limits - pre-heparin administration 90-150 seconds and monitoring heparin during a vascular procedure >250 seconds. A Right femoral angiogram was performed to determine safe placement of closure device. A Suture was successful obtaining hemostatsis at the Right Femoral artery insertion site. Arterial sheath flushed and connected to tranducer and pressure bag with heparinized saline. Post Procedure: Pulses reassessed and unchanged. PERRLA. Strong, equal hand uke driver bilaterally. No VTE prophylaxis required. Total IV fluids: 65 mL. Medication's Wasted: Heparin = 1000 UNITS. Medication's Wasted: Lidocaine 1% = 16 mL. Medication's Wasted: Other = Fentanyl 50mcg. Complications: None. Estimated blood loss: 5mL-10mL. Responsiveness - Normal response to verbal stimuli; alert and oriented, PERRLA. Airway - Unaffected, no intervention required; spontaneous ventilation. Circulation: W/N/L, pulses unchanged. Nausea/Vomiting: No. Procedure completed. Patient transferred by bed to 1st floor. Vital chart was stopped. Access Site Site: Right Femoral artery Sheath Size: 6 Fr Hemostasis Method: Suture Hemostasis Success: Successful Procedure Medications Start: 8:41 AM Stop: 8:41 AM Medication: Versed 1 mg and Fentanyl 25 mcg Amount: 1 Route: I.V. Start: 8:56 AM Stop: 8:56 AM Medication: Heparin Amount: 6000 units Route: I.V. Start: 9:00 AM Stop: 9:00 AM Medication: Fentanyl Amount: 25 mcg Route: I.V. Start: 9:04 AM Stop: 9:04 AM Medication: Cardene Amount: 250 mcg Route: I.C. Start: 9:08 AM Stop: 9:08 AM Medication: Heparin Amount: 1000 units Route: I.V. Start: 9:13 AM Stop: 9:13 AM Medication: Heparin Amount: 1000 units Route: I.V. I, the attending physician, have reviewed and verified all procedure medications. Yes, all medications given per verbal order History/Risk Factors Hypertension: No Dyslipidemia: No Peripheral Arterial Disease (PAD): No Myocardial Infarction ([place]): No Obesity: No Tobacco Use: Current/Recent(w/in 1 year) Prior Interventions PCI: No CABG: Yes Valve Surgery: No Report Signatures Finalized by Carlos Amos MD on 05/17/2024 01:38 PM
[2024-05-05] MEDS: aspirin 81 mg EC Tablet PO (07:53)
[2024-05-05] MEDS: clopidogrel 75 mg Tablet PO (07:53)
[2024-05-05] MEDS: metoprolol tartrate 25 mg Tablet PO (08:12)
--- NOTE | 2024-05-05 08:28 | W.PM.OPSUD ---
Surgery/Procedure H&P Update DATE OF PROCEDURE: May 05, 2024 DATE H&P PERFORMED: 05/05/24 H&P UPDATE INFORMATION: I have reviewed H&P completed within last 30 days, I have examined patient prior to procedure and No changes to prior documentation PREOP DIAGNOSIS: NSTEMI PRIMARY INDICATION FOR PROCEDURE: NSTEMI PLANNED PROCEDURE: Left heart cath with possible percutaneous coronary intervention PATIENT REASSESSED PRIOR TO SEDATION, WITH NO CHANGE NOTED: Yes PHYSICAL EXAM: alert, oriented x 3, clear to auscultation bilaterally and regular rate & rhythm AIRWAY EVAL/ANESTHESIA PLAN: normal airway, ASA III, Local Anesthesia, Risks, benefits & alternatives of sedation and/or procedure discussed and Patient agrees to continue as planned ADDITIONAL INFORMATION: Moderate sedation
--- NOTE | 2024-05-05 09:55 | PC.CHAP ---
Pastoral Care Encounter/Spiritual Assessment Type of Contact [] Declined manager spring visit [] Patient/Family/Request visit [] Outpatient visit [] Follow-up visit [] Physician referral [] Code/Alert [] Routine visit [] Staff referral [] Actively dying [] Patient sleeping [] Family support [] [] Out of room [] Palliative care [] [x] Receiving care in room [] Pre-surgical visit [] Trauma [] Long length of stay [] ICU visit [] Other: Relational/Emotional Strength [] Patient feels connected with others/family/visitors/staff [] Distress [] Loneliness/isolation [] Abandonment Spirituality of Patient [] Person of Carmen [] Attends Confucianist of their Carmen [] Believes in Prayer [] Reads Bible or Presybeterian materials [] There are Spiritual issues to be addressed Police And Fire Dispatcher Interventions [] Prayer [] Active listening [] Non-anxious presence [] Spiritual/emotional support [] Crisis/trauma care [] Spiritual counseling [] Bereavement support [] Provided bereavement packet [] Provided Bible/devotional materials [] Provided toy/stuffed animal, coloring book to patient or family member [] Provided Communion [] Anointing/Mclean [] Salvation [] Completed spiritual assessment [] Other: Impact on Illness or Injury [] Angry [] Fearful [] Anxious [] Often cries [] Exhaustion [] Unable to work [] Unable to attend jew [] Unable to walk/stand [] Unable to read [] Unable to drive [] Unable to eat/drink [] Unable to sleep [] Unable to be with family [] Patient intubated [] Other: Summary Time spent with patient
--- NOTE | 2024-05-05 10:13 | P.MISC_ITS ---
Miscellaneous Note Purpose of Documentation: Brief procedure note Note: Coronary angiogram SVG to diagonal artery is patent. SVG to RCA is patent. [facility] [place] [facility] has 95% stenosis. S/p successful revascularization with 1 stent. FAIRB[place]KS to LAD is patent Severe multivessel [place] coronary artery disease Recommendations: Transfer to [facility]SU Dual antiplatelet therapy with aspirin and plavix High intensity statin therapy
--- NOTE | 2024-05-05 10:13 | PM.MISC ---
Miscellaneous Note Purpose of Documentation: Brief procedure note Note: Coronary angiogram SVG to diagonal artery is patent. SVG to RCA is patent. [facility] [place] [facility] has 95% stenosis. S/p successful revascularization with 1 stent. FA[place]KS to LAD is patent Severe multivessel [place] coronary artery disease Recommendations: Transfer to [facility]SU Dual antiplatelet therapy with aspirin and plavix High intensity statin therapy
--- NOTE | 2024-05-05 12:48 | PM.PN ---
Subjective Subjective: seen today s/p cath 1 fernanda placed family at bedside refuses nicotine patch for now however is quite anxious Vitals/I&O/Wt Last Vital Signs Temp 98.2 F 05/05/24 11:52 Pulse 57 L 05/05/24 11:52 Resp 20 H 05/05/24 11:52 BP 99/66 05/05/24 11:52 Pulse Ox 92 05/05/24 11:52 O2 Del Method Nasal Cannula 05/05/24 11:52 O2 Flow Rate 3 05/05/24 10:01 05/04/24 05/05/24 05/05/24 22:59 06:59 14:59 Intake Total 240 / 240 500 / 740 Balance 240 / 240 500 / 740 Weight last 48 hrs Weight 72.575 kg Weight 72.575 kg Weight 72.121 kg Weight 72.121 kg Weight 72.121 kg Physical Exam Narrative: General: Patient is awake and alert. Head: Normocephalic. Atraumatic. EOM intact. Cardiovascular: RRR. No gallops. No murmurs. No peripheral edema. Lungs: CTA b/l, no wheezes or ronchi Skin: No jaundice. No rashes. Abdomen: Normal bowel sounds, abdomen soft and nontender. Extremities: No cyanosis or clubbing. Musculoskeletal: 5/5 strength, normal range of motion, no swollen or erythematous joints. Data 05/05/24 03:13 05/05/24 03:13 A&P Assessment and plan (1) Non-ST elevation MS (NSTEMI): Presentation consistent with NSTEMI; known history of CAD with history of 4v CABG Loaded with aspirin in ER, continue 81 mg daily Load with Plavix followed by 75 mg daily Start high intensity statin Start beta-awais with metoprolol Check lipids and A1c Continuous telemetry monitoring Given dose Lovenox in ED, start heparin drip protocol 12 hours Nitroglycerin sublingual up to 3 doses Morphine for refractory pain N.p.o. at midnight Cardiology consulted for recommendations regarding ischemic workup (2) Syncope: Near syncope/syncope x 3 episodes today Concerning for possible ventricular arrhythmia Continuous telemetry monitoring Fall precautions Neurochecks Monitor electrolytes Echocardiogram (3) Coronary artery disease: [place] [facility] [place] Management of coronary disease as noted above (4) Hyperglycemia: Check A1c (5) Tobacco use disorder: Patient would benefit from smoking cessation Plan DVT prophylaxis: Lovenox/heparin drip CODE STATUS: Full code Todays plan: pt s/p cath continue aspirin, brilinta atorvastatin cardiology following order nicotine patch. check chest xray r/o copd flare pt has gita but noncompliant with cpap, not wanting to wear it here either order duoneb q6h prn Attestations Medical Necessity Statement*: Patient presents with chest pressure and recurrent syncope, found to have NSTEMI suspect hospitalization not to cross 2 midnights for ACS protocol and ischemic evaluation. Diagnoses Non-ST elevation MS (NSTEMI) I21.4 Syncope R55 Coronary artery disease I25.10 Hyperglycemia R73.9 Tobacco use disorder F17.200
[2024-05-05 13:33] LABS: Partial Thromboplastin Time 31.9 SECONDS (23.9-36.7)
[2024-05-05] MEDS: FUROsemide 10 mg/mL SDV 2mL 20 MG IVP ×2 (14:21→18:28)
--- NOTE | 2024-05-05 17:13 | PC.NURSE ---
While coming back from discharging another pt, I walked by the pt's room and he was noted getting back in bed and plugging his wires back together. The pt said, I know I just got caught but I really had to go . It was realized at that time that the pt had got up out of bed and had a BM in the restroom! Ironically, ;he had 3 family members in the room at the time. Reassessed Rt groin site for any issues noted.
[2024-05-05] MEDS: atorvastatin 40 mg Tablet 80 MG PO (20:43)
[2024-05-06] VITALS (10 sets, daily range): BP systolic 110–142; BP diastolic 62–92; PULSE 66–72; RESP 16–25; TEMP 36.6–36.7; O2SAT 91–97; BMI 25.9
[2024-05-06 03:38] LABS: Basophils # 0.1 10^3/uL (0.0-0.1); Basophils % 0.7 %; Eosinophils # 0.1 10^3/uL (0.0-0.8); Eosinophils % 1.2 %; Hematocrit 41.7 % (37-53); Lymphocytes # 3.1 10^3/uL (0.8-4.8); Lymphocytes % 37.7 %; Mean Corpuscular HGB Conc 32.6 g/dL (30-55); Mean Corpuscular Hemoglobin 29.1 pg (27-33); Mean Corpuscular Volume 89.3 fl (82-101); Mean Platelet Volume 9.1 fL (7.4-10.4); Monocytes # 0.4 10^3/uL (0.2-0.9); Neutrophils # 4.56 10^3/uL (1.8-7.7); Neutrophils % 55.2 %; Nucleated Red Blood Cells % 0 %; Platelet Count 260 10^3/cmm (157-399); Red Blood Count 4.67 10^6/uL (3.85-5.65); Red Cell Distribution Width 13.3 % (12.1-15.1); White Blood Count 8.26 10^3/uL (3.29-11.43)
[2024-05-06 04:00] LABS: Anion Gap 15.6 (5-19); Blood Urea Nitrogen 15 mg/dL (6-20); Calcium 8.4 mg/dL (8.5-10.5); Carbon Dioxide 23 mmol/L (22-29); Chloride 105 mmol/L (98-107); Creatinine Clr Calc Pharmacy 79.4632; Glomerular Filtration Rate 77.6 mL/min (90-130); Glucose 134 mg/dL (65-115); Magnesium 1.9 mg/dL (1.7-2.3); Osmolality Calculated 293 mOsm/kg (285-295); Potassium 3.6 mmol/L (3.5-5.1); Sodium 140 mmol/L (136-145)
--- NOTE | 2024-05-06 08:01 | P.PN_ITS ---
Subjective 2 Subjective: Patient is doing well. no chest pain. O2 sat is borderline low. Vitals/I&O/Wt Last Vital Signs Temp 98.0 F 05/06/24 07:01 Pulse 69 05/06/24 07:01 Resp 21 H 05/06/24 07:01 BP 124/77 05/06/24 07:01 Pulse Ox 93 05/06/24 07:01 O2 Del Method Nasal Cannula 05/06/24 07:01 O2 Flow Rate 3 05/05/24 10:01 05/05/24 05/06/24 05/06/24 22:59 06:59 14:59 Intake Total 118 / 618 Output Total 1200 / 1200 300 / 1500 Balance -1082 / -582 -300 / -882 Weight last 48 hrs Weight 161 lb 2 oz Weight 161 lb 2 oz Weight 160 lb Weight 160 lb Weight 159 lb Weight 159 lb Weight 159 lb Physical Exam 2 Narrative: GENERAL: Patient is alert, awake and oriented x3. [] NECK: No jugular vein distension. [] HEENT: No cyanosis. No icterus. No pallor. [] HEART: Regular S1 and S2. No murmur, rub or gallop. [] LUNGS: Mild crackles. CENTRAL NERVOUS SYSTEM: Grossly nonfocal. [] EXTREMITIES: Lower extremities with no edema bilaterally. Data 05/06/24 03:21 05/06/24 03:21 A&P Assessment and plan (1) Non-ST elevation NV (NSTEMI): (2) Coronary artery disease: (3) Tobacco use disorder: Plan Patient had successful revascularization of SVG to OM with 1 stent yesterday. He is chest pain-free. Continue aspirin and Plavix. He had 1 pause over 5 seconds yesterday. He was sleeping at the time. Will recommend a 30-day event monitor. We have stopped metoprolol. Avoid any rate controlling agents. High intensity statin therapy. He is still volume overloaded. Echo showed EF of 35 to 40%. Will give IV diuresis today. Ideally will need 1 more day of diuretics however the patient wants to go home. Will need to have p.o. Lasix at time of discharge. Daily weights. Thank you for involving us with care of this patient. Please call with questions. Attestations 2 Medical Necessity Statement*: Care expected to cross 2 midnights. Coding Level of Care Code Acute Code for Chg Fwd Diagnoses Non-ST elevation NV (NSTEMI) I21.4 Coronary artery disease I25.10 Tobacco use disorder F17.200
[2024-05-06] MEDS: aspirin 81 mg EC Tablet PO (08:30)
[2024-05-06] MEDS: clopidogrel 75 mg Tablet PO (08:30)
--- NOTE | 2024-05-06 08:49 | XR_ITS ---
WS: [id number] XR chest 1V portable [id number] REASON FOR EXAM: copd FINDINGS: Sternal sutures and previous aorto coronary artery bypass. The heart is mildly enlarged. Prominent central pulmonary veins. Superimposed on chronic interstitial change in both lower lung najera are additional interstitial ret icular lung opacities and patchy hazy lung opacities as well. These findings suggest pulmonary edema superimposed on chronic lung disease presumably congestive heart failure. XR/XR chest 1V portable [id number] IMPRESSION: Findings suggest early congestive heart failure superimposed on chronic lung di sease.
[2024-05-06] MEDS: FUROsemide 10 mg/mL SDV 2mL 20 MG IVP (09:24)
[2024-05-06] MEDS: FUROsemide 10 mg/mL SDV 4mL 40 MG IVP ×2 (10:12→13:55)
--- NOTE | 2024-05-06 11:20 | P.DS_ITS ---
Discharge Providers Date of Admission: 05/04/24 20:41 Date of Discharge: May 06, 2024 Attending Provider at Admission: Phoenix Rosen MD Attending Provider at Discharge: Teagan Kennedy MD Diagnoses at Discharge Discharge Diagnosis (1) Non-ST elevation HI (NSTEMI): Status: Resolved (2) Coronary artery disease: Status: Acute (3) Tobacco use disorder: Status: Acute Reason for Visit Reason for Visit: dizzy, chest tightness Hospital Course Hospital Course Patient with history of CABG in the past presented to the hospital for NSTEMI and was taken to [facility] for coronary angiogram with possible PCI. Coronary angiogram SVG to diagonal artery is patent. SVG to RCA is patent. SVG to OM at [facility] with [place] vessel has 95% stenosis. S/p successful revascularization with 1 stent. [place] to LAD is patent Severe multivessel standing [place] coronary artery disease Echo showed reduced EF and patient was started on Lasix. Patient wanted to go home and not stay for diuresis. He was given 40 mg IV Lasix x 2 6 hours apart and sent home in stable condition. Cardiology also tried to talk to patient however patient did not want to stay. Shared decision making was done with the above plan. Patient to be discharged home in stable condition at this time to follow-up with cardiology as an outpatient and his primary care doctor. Patient chest pain-free at discharge. Physical Exam Narrative: GENERAL: Patient is alert, awake and oriented x3. [] NECK: No jugular vein distension. [] HEENT: No cyanosis. No icterus. No pallor. [] HEART: Regular S1 and S2. No murmur, rub or gallop. [] LUNGS: Mild crackles. CENTRAL NERVOUS SYSTEM: Grossly nonfocal. [] EXTREMITIES: Lower extremities with no edema bilaterally. Discharge Data Studies Completed and Pending Completed Studies During Hospitalization Category Date Time Status XR chest 1V portable [id number] Stat Exams 05/04/24 17:44 Completed XR chest 1V portable [id number] Stat Exams 05/06/24 08:49 Completed CV. echo complete* [id number] Routine Ultrasound 05/04/24 21:30 Completed Pending at discharge Category Date Time Status ONCOLOGY CONSULTANT request for service Routine Exams 05/05/24 07:43 Taken Radiology Impressions Chest X-Ray 05/06/24 08:49 IMPRESSION: Findings suggest early congestive heart failure superimposed on chronic lung disease. Laboratory Results WBC 8.26 10^3/uL (3.29-11.43) 05/06/24 03:21 RBC 4.67 10^6/uL (3.85-5.65) 05/06/24 03:21 Hgb 13.60 g/dL (11.27-16.99) 05/06/24 03:21 Hct 41.7 % (37-53) 05/06/24 03:21 MCV 89.3 fl (82-101) 05/06/24 03:21 MCH 29.1 pg (27-33) 05/06/24 03:21 MCHC 32.6 g/dL (30-55) 05/06/24 03:21 RDW 13.3 % (12.1-15.1) 05/06/24 03:21 Plt Count 260 10^3/cmm (157-399) 05/06/24 03:21 MPV 9.1 fL (7.4-10.4) 05/06/24 03:21 Neut % (Auto) 55.2 % 05/06/24 03:21 Lymph % (Auto) 37.7 % 05/06/24 03:21 Nicholas % (Auto) 5.0 % 05/06/24 03:21 Eos % (Auto) 1.2 % 05/06/24 03:21 Baso % (Auto) 0.7 % 05/06/24 03:21 Neut # (Auto) 4.56 10^3/uL (1.8-7.7) 05/06/24 03:21 Lymph # (Auto) 3.1 10^3/uL (0.8-4.8) 05/06/24 03:21 Nicholas # (Auto) 0.4 10^3/uL (0.2-0.9) 05/06/24 03:21 Eos # (Auto) 0.1 10^3/uL (0.0-0.8) 05/06/24 03:21 Baso # (Auto) 0.1 10^3/uL (0.0-0.1) 05/06/24 03:21 Nucleated RBC % (auto) 0 % 05/06/24 03:21 Nucleated RBCs # 0.0 /100WBC 05/06/24 03:21 PT 15.10 SECONDS (12.1-14.9) H 05/04/24 18:50 INR 1.15 (0.8-1.2) 05/04/24 18:50 APTT 31.9 SECONDS (23.9-36.7) 05/05/24 13:05 Sodium 140 mmol/L (136-145) 05/06/24 03:21 Potassium 3.6 mmol/L (3.5-5.1) 05/06/24 03:21 Chloride 105 mmol/L (98-107) 05/06/24 03:21 Carbon Dioxide 23 mmol/L (22-29) 05/06/24 03:21 Anion Gap 15.6 (5-19) 05/06/24 03:21 BUN 15 mg/dL (6-20) 05/06/24 03:21 Creatinine 1.0 mg/dL (0.7-1.2) 05/06/24 03:21 GFR Calculation 77.6 mL/min (90-130) L 05/06/24 03:21 Glucose 134 mg/dL (65-115) H 05/06/24 03:21 Estimat Average Glucose 200 05/04/24 18:50 Hemoglobin A1c 8.6 % (4.0-6.0) H 05/04/24 18:50 Calculated Osmolality 293 mOsm/kg (285-295) 05/06/24 03:21 Calcium 8.4 mg/dL (8.5-10.5) L 05/06/24 03:21 Phosphorus 3.4 mg/dL (2.5-4.5) 05/05/24 03:13 Magnesium 1.9 mg/dL (1.7-2.3) 05/06/24 03:21 Total Bilirubin 0.7 mg/dL (0.15-1.2) 05/04/24 18:50 AST 23 U/L (0-40) 05/04/24 18:50 ALT 24 U/L (0-41) 05/04/24 18:50 Alkaline Phosphatase 101 U/L (40-130) 05/04/24 18:50 Troponin T Baseline 437 ng/L (0-15) H* 05/04/24 18:50 Troponin T 120 Minute 417.1 ng/L (0-15) H 05/04/24 20:31 Delta Troponin T -19.9 ABS# (0-10) L 05/04/24 20:31 Troponin T Hi Sens 6Hr 411.4 ng/L (0-15) H 05/05/24 01:02 Troponin T Hi Sens 6Hr Delta -25.6 ng/L (0-12) L 05/05/24 01:02 Total Protein 7.6 g/dL (6.6-8.7) 05/04/24 18:50 Albumin 4.3 g/dL (3.5-5.2) 05/04/24 18:50 Globulin 3.3 g/dL (1.3-4.6) 05/04/24 18:50 Triglycerides 126 mg/dL (0-150) 05/04/24 18:50 Cholesterol 166 mg/dL (0-200) 05/04/24 18:50 LDL Cholesterol, Calc 116 mg/dL (50-129) 05/04/24 18:50 HDL Cholesterol 25 mg/dL (60-100) L 05/04/24 18:50 LDL/HDL Ratio 4.64 RATIO (0.00-3.22) H 05/04/24 18:50 Cholesterol/HDL Ratio 6.64 mg/dL (1.0-5.00) H 05/04/24 18:50 Lipase 19 U/L (13-60) 05/04/24 18:50 Vitals Last Vital Signs Temp 98.0 F 05/06/24 07:01 Pulse 66 05/06/24 09:03 Resp 16 05/06/24 09:03 BP 124/77 05/06/24 07:01 Pulse Ox 94 05/06/24 09:03 O2 Del Method Nasal Cannula 05/06/24 09:03 O2 Flow Rate 2 05/06/24 07:55 Discharge Plan Discharge Patient Disposition: Home Condition: Stable Prescriptions: New aspirin 81 mg Tablet,Delayed Release (Dr/Ec) 81 mg PO DAILY Qty: 30 0RF atorvastatin 40 mg Tablet 80 mg PO BEDTIME Qty: 30 0RF clopidogrel 75 mg Tablet 75 mg PO DAILY Qty: 30 0RF Lasix 40 mg tablet 40 mg PO DAILY Qty: 30 0RF potassium chloride 10 mEq tablet extended release 10 meq PO DAILY Qty: 30 0RF Discharge Orders: Discharge Order (Routine); Ordered 05/06/24 Ordered By: Teagan Marcia Referrals: Carlos Amos M.D [Physician] - 1 month Verena Rashid FNP [Nurse Practitioner] - 06/03/24 2:00 pm Discharge Diet: Cardiac Discharge Activity: Limit activity as instructed Patient Instructions: Furosemide (By mouth) (Lasix), Potassium Chloride (By mouth), Atorvastatin (By mouth) (Lipitor, Atorvaliq), Clopidogrel (By mouth) (Plavix), Heart Failure (DC), Coronary Angioplasty (DC), CHF Stoplight, Opioid Safety, Post Angiogram Home Care Instructions Stand Alone Forms: Work/School Release Discharge Attestations Time Spent in Discharge Care*: less than 30 min Quality Metrics Clinical Quality Measures [ No reported AMI, CVA or VTE this stay] Coding Level of Care Code Acute Code for Chg Fwd Diagnoses Non-ST elevation HI (NSTEMI) I21.4 Coronary artery disease I25.10 Tobacco use disorder F17.200
--- NOTE | 2024-05-06 12:54 | PC.NURSE ---
Pt noncompliant with use of a urinal but states that he has gone to the restroom multiple times
--- NOTE | 2024-05-06 16:02 | PC.NURSE ---
Discharge Note Patient discharged to [home] via [ambulation to POV] accompanied by [family]. Discharge instructions reviewed with patient and/or marketing representative. Mobile pharmacy medications and/or prescriptions provided. Belongings/home medications returned.
== END 2024-05-06 15:48 | disposition home or self-care (01) ==
LOC: ER 19:49 → CSU 20:07
PROVIDERS: Internal Medicine; Admitting Provider Internal Medicine; Emergency Provider Emergency Medicine; Visit Provider Internal Medicine
DX: I21.4 Non-ST elevation (NSTEMI) myocardial infarction (principal); I25.10 Atherosclerotic heart disease of native coronary artery without angina pectoris; F17.200 Nicotine dependence, unspecified, uncomplicated; Z95.1 Presence of aortocoronary bypass graft; R55 Syncope and collapse; R73.9 Hyperglycemia, unspecified
CPT/HCPCS: 36415; 71045; 80048; 80053; 80061; 83036; 83690; 83735; 84100; 84484; 85025; 85347; 85610; 85730; 93005; 93306; 93455; 94760; 96365; 96366; 96372; 96374; 96375; 96376; 99152; 99153; 99285; C1769; C1874; C1887; C1894; C9600; G0378; J1644; J1650; J1940; J2250; J3010; J3490; Q9967